=== PATIENT | male | born 1960 | race Caucasian/White ===

== ENCOUNTER → 2017-09-27 | Outpatient (CLI) | payer OTHER ==
[~2017-09-27] MED LIST: DIPH0.5D12 IM; LOSA-57 PO; MOEX1TAB PO; MULT-1319 PO
== END ==
LOC: RESP 03:01
PROVIDERS: ATTEND Emergency Medicine
DX: G47.33 Obstructive sleep apnea (adult) (pediatric) (principal)

== ENCOUNTER → 2017-11-01 | Outpatient (CLI) | payer OTHER | LOC: RESP 20:44 | PROVIDERS: ATTEND Emergency Medicine | DX: G47.33 Obstructive sleep apnea (adult) (pediatric) (principal); G47.61 Periodic limb movement disorder; G47.36 Sleep related hypoventilation in conditions classified elsewhere; E66.9 Obesity, unspecified ==

== ENCOUNTER → 2017-12-18 | Outpatient (CLI) | payer OTHER ==
[~2017-12-18] MED LIST changes: +CYAN20003 PO
[2017-12-18 09:31] LABS: PLATELET COUNT, AUTOMATED 162 K/uL (150-450)
== END ==
LOC: LAB 09:05
PROVIDERS: ATTEND Emergency Medicine
DX: G25.81 Restless legs syndrome (principal); G47.30 Sleep apnea, unspecified
CPT/HCPCS: 36415; 82465; 82607; 82746; 83540; 83550; 83718; 84478; 85025

== ENCOUNTER → 2018-04-18 | Outpatient (CLI) | payer OTHER ==
[2018-04-18 10:14] LABS: PLATELET COUNT, AUTOMATED 193 K/uL (150-450)
== END ==
LOC: LAB 09:15
PROVIDERS: ATTEND Emergency Medicine
DX: D75.1 Secondary polycythemia (principal); E53.8 Deficiency of other specified B group vitamins
CPT/HCPCS: 36415; 82465; 82607; 83718; 84478; 85025